=== PATIENT | female | born 1965 | race Two or more races ===

== ENCOUNTER 2017-06-14 13:23 | Emergency (ER) | payer SELFPAY ==
[~2017-06-14] VITALS: Ht 152.4 cm; Wt 63.5 kg
[~2017-06-14 13:23] MED LIST: SIMV20TA6 PO
--- NOTE | 2017-06-14 13:24 | NUR ---
HEADACHE, LEFT ARM TINGLING x "COUPLE OF DAYS", ANXIETY TOOK ASA 325 PO x 2 PREPPER
[2017-06-14 14:31] LABS: BASOPHILS # (AUTO) 0.1 /CMM (0.0-0.2); BASOPHILS % (AUTO) 1.2 % (0.0-2.0); EOSINOPHILS # (AUTO) 0.1 /CMM (0.0-0.7); EOSINOPHILS % (AUTO) 0.8 % (0.0-6.0); HEMATOCRIT 38 % (33-45); HEMOGLOBIN 12.3 g/dL (11.5-14.8); MEAN CORPUSCULAR HEMOGLOBIN 28 PG (26.0-33.0); MEAN CORPUSCULAR HGB CONC 32 g/dl (31.0-36.0); MEAN CORPUSCULAR VOLUME 87 fL (82-100); MONOCYTES # (AUTO) 0.4 /CMM (0.1-1.30); MONOCYTES % (AUTO) 5.8 % (2.0-12.0); NEUTROPHILS # (AUTO) 3.9 /CMM (1.8-8.9); NEUTROPHILS % (AUTO) 61.2 % (43.0-81.0); PLATELET COUNT (AUTO) 241 /CMM (150-450); RDW COEFFICIENT OF VARIATION 13.7 (11.5-15.0); RED BLOOD CELL COUNT(AUTO) 4.36 MIL/uL (4.0-5.2); WHITE BLOOD COUNT (AUTO) 6.5 K/uL (4.3-11.0)
[2017-06-14 14:37] LABS: CALCIUM, SERUM 9.1 mg/dL (8.5-10.1); CARBON DIOXIDE 31 mmol/L (21-32); CHLORIDE 106 mmol/L (98-107); CREATININE 1.2 mg/dL (0.6-1.3); GLUCOSE 99 mg/dL (74-106); POTASSIUM 4.6 mmol/L (3.5-5.1); SODIUM SERUM 140 mmol/L (136-145); UREA NITROGEN, BLOOD 13 mg/dL (7-18)
[2017-06-14 14:41] LABS: INR 0.93 (0.87-1.13); PROTHROMBIN TIME 9.7 SECS (9.5-12.7)
[2017-06-14 14:46] LABS: TROPONIN I < 0.017 ng/mL (0.00-0.056)
[2017-06-14] MEDS ORDERED: LORAZEPAM 1 MG TABLET PO ONE (15:00)
[2017-06-14] MEDS ORDERED: LORAZEPAM 1 MG TABLET ONE (15:03)
--- NOTE | 2017-06-14 15:10 | NUR ---
PT REFUSED IV YOJANA AWARE
[2017-06-14] MEDS ORDERED: KETOROLAC TROMETHAMINE INJ 60 MG/2 ML VIAL IM ONE ×2 (15:45→16:00)
--- NOTE | 2017-06-14 16:12 | NUR ---
Patient discharged to home in stable condition. Written and verbal after care instructions given. Patient verbalizes understanding of instruction.
[2017-06-14 16:14] VITALS: BP 127/68
== END 2017-06-14 16:15 | disposition home or self-care (01) ==
LOC: ER 13:26
DX: F41.9 Anxiety disorder, unspecified (principal); R51 Headache; R79.1 Abnormal coagulation profile
CPT/HCPCS: 36415; 70450-TC; 71010-TC; 80048-TC; 84484-TC; 85025-TC; 85730-TC; A4606; J1885; Z7610